=== PATIENT | female | born 1940 ===

== ENCOUNTER 2025-10-27 15:55 | Outpatient (CLI) | payer MEDICARE, SELFPAY ==
--- NOTE | 2025-10-27 14:30 | DI.RAD_ITS ---
Exam(s) XR KNEE RT 4V AP,LAT,SOCORRO,PAT EXAM: XR KNEE RT 4V AP,LAT,SOCORRO,PAT CLINICAL HISTORY: RIGHT KNEE PAIN. TECHNIQUE: 2D digital imaging was performed. Three views. COMPARISON: No exams were available for comparison FINDINGS: BONES: No acute fracture is present. No bony destructive lesion is seen. JOINTS: There is severe narrowing of the medial femoral tibial joint space, with a [id number] appearance. There is some remodeling of the tibial plateau flattening medial femoral condyle as well as prominent periarticular spurring. There is some lateral subluxation of the tibia with respect to the distal femur. There is varus angulation. The patellofemoral joint space is maintained. A moderate-sized joint effusion is seen. SOFT TISSUE: Vascular calcifications. Surgical clips are noted in the medial stool subcutaneous fat. 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 DATA REPOSITORY: RADIATION DOSE DELIVERED:
== END 2025-10-27 15:56 | disposition home or self-care (01) ==
LOC: DIORS 15:56
PROVIDERS: Visit Provider Physician Assistant
DX: M17.11 Unilateral primary osteoarthritis, right knee (principal)
CPT/HCPCS: 99203; 20610; J1010; 73564